=== PATIENT | female | born 1990 | race Caucasian/White ===

== ENCOUNTER → 2020-12-13 | Outpatient (CLI) | payer BC ==
--- NOTE | 2020-12-13 08:26 | US ---
EXAMINATION TYPE: US abdomen complete DATE OF EXAM: 12/13/2020 COMPARISON: NONE CLINICAL HISTORY: 30-year-old female R74.01 Elevated liver enzymes. TECHNIQUE: Multiple sonographic images of the abdomen are obtained. FINDINGS: EXAM MEASUREMENTS: Liver Length: 14.1 cm Gallbladder Wall: 0.2 cm CBD: 0.3 cm Spleen: 9.4 cm Right Kidney: 10.8 x 4.2 x 5.0 cm Left Kidney: 11.0 x 4.2 x 4.5 cm Pancreas: Pancreatic tail is obscured by bowel gas shadowing. Visualized portions show no gross abno rmal. Liver: Limited views of the hepatic dome. Visualized portions within normal limits. Gallbladder: wnl Evidence for sonographic Burch's sign: no CBD: wnl Spleen: wnl Right Kidney: No hydronephrosis or masses seen, prominent left renal vein incidentally noted is marx nt Left Kidney: No hydronephrosis or masses seen Upper IVC: wnl Abd Aorta: wnl, bifurcation obscured by overlying bowel IMPRESSION: Limited visualization of the pancreatic tail and the dome of the liver. No gallstones or biliary duct al dilatation.
== END | disposition home or self-care (01) ==
LOC: RADUSWWP 07:37
PROVIDERS: ATTEND Family Medicine
DX: R74.01 Elevation of levels of liver transaminase levels (principal)
CPT/HCPCS: 76700

== ENCOUNTER 2023-09-22 00:30 | Emergency (ER) | payer OTHER ==
--- NOTE | 2023-09-22 00:58 | ED ---
Lower Extremity Injury HPI - General Source: patient Mode of arrival: wheelchair Limitations: no limitations <Félix Santiago - Last Filed: 09/22/23 00:57> <Russell Camilo - Last Filed: 09/22/23 02:14> - General Stated Complaint: Left foot pain Time Seen by Provider: 09/22/23 00:57 - History of Present Illness Initial Comments: 33-year-old female presenting with chief complaint of left big toe pain. She dropped a tote on it at work today. (Félix Santiago) - Related Data Previous Rx's Medication Instructions Recorded Sertraline HCl [Zoloft] 150 mg PO DAILY #21 tab 05/22/23 HYDROcodone/APAP 5-325MG [[place] 1 tab PO Q4HR PRN 3 Days #12 tab 09/22/23 5-325] Ibuprofen [Motrin] 600 mg PO Q8HR PRN #20 tab 09/22/23 Allergies Allergy/AdvReac Type Severity Reaction Status Date / Time No Known Allergies Allergy Verified 05/22/23 18:53 Review of Systems ROS Other: All systems not noted in ROS Statement are negative. <Félix Santiago - Last Filed: 09/22/23 00:57> ROS Other: All systems not noted in ROS Statement are negative. <Russell Camilo - Last Filed: 09/22/23 02:14> ROS Statement: Those systems with pertinent positive or pertinent negative responses have been documented in the HPI. Past Medical History Past Medical History: No Reported History History of Any Multi-Drug Resistant Organisms: None Reported Past Surgical History: No Surgical Hx Reported Past Psychological History: Anxiety, Depression Smoking Status: Current every day smoker Past Alcohol Use History: Daily Past Drug Use History: None Reported <Félix Santiago - Last Filed: 09/22/23 00:57> General Exam <Félix Santiago - Last Filed: 09/22/23 00:57> Limitations: no limitations General appearance: alert, in no apparent distress Left Knee exam: Present: normal inspection, full ROM. Absent: tenderness, swelling Lower Leg exam: Present: normal inspection, full ROM. Absent: tenderness, swelling Ankle exam: Present: normal inspection, full ROM. Absent: tenderness, swelling Foot/Toe exam: Present: full ROM, tenderness, swelling, ecchymosis. Absent: abrasion, laceration, deformity, crepitus, dislocation, erythema, amputation, puncture wound, foreign body, calcaneal tenderness, tenderness at base of 5th metatarsal, nail avulsion, subungual hematoma Neurovascular tendon exam: Present: no vascular compromise. Absent: abnormal cap refill, motor deficit, sensory deficit, tendon deficit Skin exam: Present: warm, dry, intact, normal color. Absent: rash <Russell Camilo - Last Filed: 09/22/23 02:14> - General Exam Comments Initial Comments: Visual Physical Exam Vital signs reviewed General: Well-appearing, nontoxic, no acute distress. Head: Normocephalic, atraumatic Eyes: PERRLA, EOMI ENT: Airway patent Chest: Nonlabored breathing Skin: No visual rash, normal skin tone Neuro: Alert and oriented 3 Musculoskeletal: No gross abnormalities (Félix Santiago) Course Vital Signs 09/22/23 00:53 Temperature 98 F Pulse Rate 90 Respiratory 18 Rate Blood Pressure 108/67 O2 Sat by Pulse 100 Oximetry Medical Decision Making <Russell Camilo - Last Filed: 09/22/23 02:14> - Medical Decision Making Shouldn't is 33-year-old woman who presents to have evaluation of left great toe after crush injury. The patient had x-ray which I interpreted as showing nondisplaced fracture of the great toe. Patient is given postop shoe for support, will follow with orthopedics. She is given work note, declines analgesics here but will be given prescription. Discussed appropriate further care and follow-up as well as return parameters. (Russell Camilo) Disposition <Félix Santiago - Last Filed: 09/22/23 00:57> Is patient prescribed a controlled substance at d/c from ED?: No <Russell Camilo - Last Filed: 09/22/23 02:14> Clinical Impression: Toe fracture Disposition: HOME SELF-CARE Condition: Good Instructions (If sedation given, give patient instructions): Toe Fracture (ED) Prescriptions: Ibuprofen [Motrin] 600 mg PO Q8HR PRN #20 tab PRN Reason: Pain HYDROcodone/APAP 5-325MG [[place] 5-325] 1 tab PO Q4HR PRN 3 Days #12 tab PRN Reason: Pain Referrals: Shivani Caro MD [Primary Care Provider] - 1-2 days
[2023-09-22 01:19] VITALS: BP 108/67; PULSE 90; RESP 18; TEMP 98
--- NOTE | 2023-09-22 07:54 | XR ---
EXAM: XR Left Foot Complete, 3 or More Views CLINICAL HISTORY: XR Reason: L big toe pain TECHNIQUE: Frontal, lateral and oblique views of the left foot. COMPARISON: No relevant prior studies available. FINDINGS: Bones/joints: There is a nondisplaced sagittally oriented fracture through the distal phalanx of the first digit, left foot. The remaining osseous structures are intact and normally aligned. The midfoot alignment is normal. Soft tissues: Unremarkable. No radiopaque foreign body. IMPRESSION: There is a nondisplaced sagittally oriented fracture through the distal phalanx of the first digit, left foot. MTDD
== END 2023-09-22 02:27 | disposition home or self-care (01) ==
LOC: EC 00:30
DX: S92.425A Nondisplaced fracture of distal phalanx of left great toe, initial encounter for closed fracture (principal); F17.200 Nicotine dependence, unspecified, uncomplicated; Z86.59 Personal history of other mental and behavioral disorders; X58.XXXA Exposure to other specified factors, initial encounter; Y99.0 Civilian activity done for income or pay
CPT/HCPCS: 99284

== ENCOUNTER 2023-09-29 04:42 | Emergency (ER) | payer OTHER ==
[2023-09-29 05:02] VITALS: BP 117/76; PULSE 98; RESP 18; TEMP 98
--- NOTE | 2023-09-29 05:22 | ED ---
Lower Extremity Injury HPI - General Chief Complaint: Extremity Injury, Lower Stated Complaint: Toe pain Time Seen by Provider: 09/29/23 05:00 Source: patient Mode of arrival: EMS - History of Present Illness Initial Comments: 33-year-old female presents emergency department with reported left toe pain. States that she works at [employer]. She dropped a large tote on her left foot and was diagnosed with a fracture of her left great toe. States that she was given a prescription for Tylenol threes however she only has a couple of tablets left. She does have an upcoming appointment with the orthopedic office however states that she was unable to get in right away. Her work has been forcing her to wear a boot as well as a toe cover and she states that this is causing her more pain. She denies any new injuries. No numbness or tingling in the digits. No other alleviating, precipitating or modifying factors - Related Data Previous Rx's Medication Instructions Recorded Sertraline HCl [Zoloft] 150 mg PO DAILY #21 tab 05/22/23 HYDROcodone/APAP 5-325MG [[place] 1 tab PO Q4HR PRN 3 Days #12 tab 09/22/23 5-325] Ibuprofen [Motrin] 600 mg PO Q8HR PRN #20 tab 09/22/23 HYDROcodone/APAP 5-325MG [[place] 1 tab PO Q6HR PRN 3 Days #12 tab 09/29/23 5-325] Ibuprofen 600 mg PO Q6H #20 tab 09/29/23 Allergies Allergy/AdvReac Type Severity Reaction Status Date / Time No Known Allergies Allergy Verified 09/29/23 04:49 Review of Systems ROS Statement: Those systems with pertinent positive or pertinent negative responses have been documented in the HPI. ROS Other: All systems not noted in ROS Statement are negative. Past Medical History Past Medical History: No Reported History History of Any Multi-Drug Resistant Organisms: None Reported Past Surgical History: No Surgical Hx Reported Past Psychological History: Anxiety, Depression Smoking Status: Current every day smoker Past Alcohol Use History: Daily Past Drug Use History: None Reported General Exam General appearance: alert, in no apparent distress Head exam: Present: atraumatic, normocephalic, normal inspection Extremities exam: Present: other (Patient has tenderness and swelling to the left great toe. The patient is wearing a boot. She has intact sensation. Good cap refill. Patient is able to move the toe. No signs of compartment syndrome) Course Vital Signs 09/29/23 04:47 Temperature 98.0 F Pulse Rate 98 Respiratory 18 Rate Blood Pressure 117/76 O2 Sat by Pulse 100 Oximetry Medical Decision Making - Medical Decision Making Was pt. sent in by a medical professional or institution (, [facility], [facility], urgent care, hospital, or [facility]...) When possible be specific @ -No Did you speak to anyone other than the patient for history (EMS, parent, family, police, friend...)? What history was obtained from this source @ -EMS Did you review nursing and triage notes (agree or disagree)? Why? @ -I reviewed and agree with nursing and triage notes Were old charts reviewed (outside hosp., previous admission, EMS record, old EKG, old radiological studies, urgent care reports/EKG's, [facility] records)? Report findings @ -No old charts were reviewed Differential Diagnosis (chest pain, altered mental status, abdominal pain women, abdominal pain men, vaginal bleeding, weakness, fever, dyspnea, syncope, headache, dizziness, GI bleed, back pain, seizure, CVA, palpatations, mental health, musculoskeletal)? @ -Differential Musculoskeletal Muscular strain, contusion, ligament sprain, fracture, arthritis, septic arthritis, bursitis, cellulitis, muscle spasm, nerve compression, DVT, arterial occlusion, herpes zoster, electrolyte abnormality, tumor.... This is not meant to be in all inclusive list EKG interpreted by me (3pts min.). @ -Not done X-rays interpreted by me (1pt min.). @ -None done CT interpreted by me (1pt min.). @ -None done U/S interpreted by me (1pt. min.). @ -None done What testing was considered but not performed or refused? (CT, X-rays, U/S, labs)? Why? @ -X-ray however the patient already has a fracture and reports no new injuries What meds were considered but not given or refused? Why? @ -None Did you discuss the management of the patient with other professionals (professionals i.e. [facility], [facility], lab, RT, psych nurse, group social worker, stone rougher, teacher, legal compliance officer, complex case manager)? Give summary @ -No Was smoking cessation discussed for >3mins.? @ -No Was critical care preformed (if so, how long)? @ -No Were there social determinants of health that impacted care today? How? (Homelessness, low income, unemployed, alcoholism, drug addiction, transportation, low edu. Level, literacy, decrease access to med. care, [facility], rehab)? @ -No Was there de-escalation of care discussed even if they declined (Discuss DNR or withdrawal of care, Hospice)? DNR status @ -No What co-morbidities impacted this encounter? (DM, HTN, Smoking, COPD, CAD, Cancer, CVA, ARF, Chemo, Hep., AIDS, mental health diagnosis, sleep apnea, morbid obesity)? @ -None Was patient admitted / discharged? Hospital course, mention meds given and route, prescriptions, significant lab abnormalities, going to OR and other pertinent info. @ -Discharged. Upon arrival patient was placed into room 32. Thorough history and physical exam was performed. I did refill the patient's prescription for Tylenol 3's. She was provided with a work note. Patient is to rest, ice and elevate the extremity until she follows up with the orthopedic doctor. Return for any new or worsening symptoms. Patient was agreeable to the plan she was discharged home in stable condition Undiagnosed new problem with uncertain prognosis? @ -No Drug Therapy requiring intensive monitoring for toxicity (Heparin, Nitro, Insulin, Cardizem)? @ -No Were any procedures done? @ -No Diagnosis/symptom? @ -Acute exacerbation of left great toe pain, left great toe fracture Acute, or Chronic, or Acute on Chronic? @ -Acute Uncomplicated (without systemic symptoms) or Complicated (systemic symptoms)? @Uncomplicated Side effects of treatment? @ -No Exacerbation, Progression, or Severe Exacerbation? @ -No Poses a threat to life or bodily function? How? (Chest pain, [place], [place], pneumonia, PE, COPD, DKA, ARF, appy, cholecystitis, CVA, Diverticulitis, Homicidal, Suicidal, threat to staff... and all critical care pts) @ -No Disposition Clinical Impression: Toe fracture Disposition: HOME SELF-CARE Condition: Stable Instructions (If sedation given, give patient instructions): Toe Fracture (ED) Additional Instructions: Please follow-up with the waste management specialist. Return for any new or worsening symptoms Prescriptions: Ibuprofen 600 mg PO Q6H #20 tab HYDROcodone/APAP 5-325MG [[place] 5-325] 1 tab PO Q6HR PRN 3 Days #12 tab PRN Reason: Severe Breakthrough Pain Is patient prescribed a controlled substance at d/c from ED?: Yes When asked, does pt state using other controlled substances?: No If prescribed controlled substance>3 days was MAPS reviewed?: Prescribed <3 Days If opioid is for acute pain is fill amount 7 days or less?: Yes Referrals: Kalen Garcia MD [Primary Care Provider] - 1-2 days Jason Burch MD [STAFF PHYSICIAN] - 1-2 days Time of Disposition: 05:21
== END 2023-09-29 05:27 | disposition home or self-care (01) ==
LOC: EC 04:42
DX: S92.402A Displaced unspecified fracture of left great toe, initial encounter for closed fracture (principal); F17.200 Nicotine dependence, unspecified, uncomplicated; Z86.59 Personal history of other mental and behavioral disorders; W20.8XXA Other cause of strike by thrown, projected or falling object, initial encounter
CPT/HCPCS: 99283